=== PATIENT | male | born 1950 | race African-American/Black ===

== ENCOUNTER 2016-10-30 17:55 | Emergency (ER) | payer OTHER, MEDICARE ==
[~2016-10-30] VITALS: Ht 172.7 cm; Wt 88.5 kg
[2016-10-30 18:07] VITALS: BP 174/96
--- NOTE | 2016-10-30 18:41 | PHYS DOC ---
Past Medical History Past Medical History: Hypertension Past Surgical History: Other Additional Past Surgical Histo: ganglion cyst removal Additional Information: 07/23 ppd Alcohol Use: Occasionally Drug Use: Marijuana Social History Narrative: smoked marijuana 2 weeks ago Adult General Chief Complaint Chief Complaint: ELBOW PROBLEM HPI HPI Patient is a 66 year old male who presents emergency Department today via EMS with complaint of bilateral elbow pain and swelling as well as right shoulder pain secondary to a slip and fall at approximately 3 PM (3 hours ago). Patient also states that he hit the left side of his face. He denies loss of consciousness, visual disturbances, headache. He states he does not take blood thinners. Patient denies any history of bone forming disorders. Denies any previous right shoulder fracture/dislocation or either elbow being fractured or dislocated. Patient states that he did this and see was picking up her throat eyes. He states that he scuffed his foot across an uneven surface which had increased traction was caused him to slip forward and fall. Patient states that he typically gets his medical care at the [facility]. Review of Systems Review of Systems Constitutional: Denies fever or chills [] Eyes: Denies change in visual acuity, redness, or eye pain [] HENT: Denies nasal congestion or sore throat [] Respiratory: Denies cough or shortness of breath [] Cardiovascular: No additional information not addressed in HPI [] GI: Denies abdominal pain, nausea, vomiting, bloody stools or diarrhea [] : Denies dysuria or hematuria [] Musculoskeletal: Denies back pain or joint pain [] Integument: Denies rash or skin lesions [] Neurologic: Denies headache, focal weakness or sensory changes [] Endocrine: Denies polyuria or polydipsia [] Current Medications Current Medications Current Medications Medications (Trade) Dose Ordered Sig/Susan Start Time Stop Time Status Last Admin Dose Admin Acetaminophen/ Hydrocodone Bitart (Lortab 5/325) 1 tab 1X ONCE 10/30/16 20:30 10/30/16 20:30 DC 10/30/16 19:56 1 TAB Allergies Allergies Allergies Coded Allergies Type Severity Reaction Last Updated Verified No Known Drug Allergies 10/30/16 No Physical Exam Physical Exam Constitutional: Well developed, well nourished, no acute distress, non-toxic appearance. HENT: Normocephalic, bilateral external ears normal, oropharynx moist, no oral exudates, nose normal. Mild swelling to patient's left cheek. There is no palpable instability or crepitus. Tympanic membranes are intact without hemotympanum. Eyes: PERRLA, EOMI, conjunctiva normal, no discharge. Neck: Normal range of motion, no tenderness, supple, no stridor. [] Cardiovascular:Heart rate regular rhythm, no murmur [] Lungs & Thorax: Bilateral breath sounds clear to auscultation [] Abdomen: Bowel sounds normal, soft, no tenderness, no masses, no pulsatile masses. [] Skin: Warm, dry, no erythema, no rash. [] Back: No tenderness, no CVA tenderness. [] Extremities: Patient's right shoulder is normal in appearance. Patient is fry tenderness to his right shoulder without any palpable focal area of instability or crepitus. He is able to raise his arm and circumduct the shoulder. Patient's right elbow is normal in appearance. There is tenderness to palpation to the posterior distal humerus and lateral aspect of the elbow without any palpable defect, deformity, instability or crepitus. Patient demonstrates full range of motion with flexion, extension, supination and pronation. Patient's left elbow shows swelling to the lateral aspect of the elbow and proximal left forearm. There is no palpable instability or crepitus. He again demonstrates full range of motion with his left elbow. Both upper extremities are neurovascularly intact with capillary refill less than 2 seconds. Neurologic: Alert and oriented X 3, normal motor function, normal sensory function, no focal deficits noted. [] Psychologic: Affect normal, judgement normal, mood normal. [] Current Patient Data Vital Signs Vital Signs Date Time Temp Pulse Resp B/P Pulse Ox O2 Delivery O2 Flow Rate FiO2 10/30/16 19:56 18 97 Room Air 10/30/16 18:07 98.8 68 98.8 EKG EKG [] Radiology/Procedures Radiology/Procedures 3 views of patient's right shoulder and 3 views of bilateral elbows were performed with adequate technique. There is no evidence of acute bony injury such as fracture or dislocation. Course & Med Decision Making Course & Med Decision Making Pertinent Labs and Imaging studies reviewed. (See chart for details) [] Dragon Disclaimer Dragon Disclaimer This electronic medical record was generated, in whole or in part, using a voice recognition dictation system. Departure Departure Impression: Primary Impression: Facial contusion Additional Impressions: Elbow contusion Shoulder contusion Disposition: 01 HOME, SELF-CARE Condition: GOOD Patient Instructions: Elbow Contusion, [id number], Facial or Scalp Contusion , [id number], Shoulder Pain, [id number] Additional Instructions: 1. The x-rays of your elbows and right shoulder today show no broken bones or dislocations. 2. Review the discharge instructions provided for self-care and reasons to return to the emergency department. 3. Take the medication as prescribed. 4. Call your primary care doctor's office in the morning to schedule follow-up appointment for reexamination within the next 5-7 days. Scripts Hydrocodone/Apap 5-325 ([place] 5-325 Tablet)1 Each Tablet1 Tab PO PRN Q6HRS PRN PAIN #[address] a vehicle or operate power quinone while taking this medication. Prov:TIERRA FELDMAN 10/30/16 Problem Qualifiers Primary Impression: Facial contusion Encounter type: initial encounter Qualified Code: S00.83XA - Contusion of other part of head, initial encounter Additional Impressions: Elbow contusion Encounter type: initial encounter Laterality: unspecified laterality Qualified Code: S50.00XA - Contusion of unspecified elbow, initial encounter Shoulder contusion Encounter type: initial encounter Laterality: right Qualified Code: S40.011A - Contusion of right shoulder, initial encounter TIERRA FELDMAN Oct 30, 2016 18:41
[2016-10-30] MEDS ORDERED: HYDR-971 PO (19:56)
[2016-10-30] MEDS ORDERED: HYDROCODONE/APAP 5/325MG TABLET. PO ONE (20:30)
--- NOTE | 2016-10-31 08:33 | RAD ---
Right shoulder, 3 views, 10/30/2016: History: Fall, pain No acute fracture or dislocation is identified. There is minimal spurring at the AC joint. Several old healed rib fractures are present. IMPRESSION: No acute bony abnormality is detected.
--- NOTE | 2016-10-31 08:35 | RAD ---
Bilateral elbows, 6 views, 10/30/2016: History: Fall, pain No fracture or dislocation is identified. There is minimal spurring at both elbow joints. No significant joint effusion is delineated. IMPRESSION: No acute bony abnormality is detected.
== END 2016-10-30 20:05 | disposition home or self-care (01) ==
LOC: ER 17:55
DX: S00.83XA Contusion of other part of head, initial encounter (principal); S40.011A Contusion of right shoulder, initial encounter; S50.02XA Contusion of left elbow, initial encounter; I10 Essential (primary) hypertension; F12.10 Cannabis abuse, uncomplicated; F17.200 Nicotine dependence, unspecified, uncomplicated; W01.198A Fall on same level from slipping, tripping and stumbling with subsequent striking against other object, initial encounter; Y93.89 Activity, other specified; Y92.89 Other specified places as the place of occurrence of the external cause; Y99.8 Other external cause status
CPT/HCPCS: 73030; 73080; 99284